=== PATIENT | female | born 1965 | race Caucasian/White ===

== ENCOUNTER 2024-01-31 06:08 | Emergency (ER) | payer SELFPAY ==
[2024-01-31 06:12] VITALS: BP 126/86; BMI 33.3
[2024-01-31 06:16] VITALS: BP 126/86
[2024-01-31 06:34] LABS: % Basophils 0.8 % (0-2); % Eosinophils 1.8 % (0-6); % Immature Granulocytes 0.3 % (0-0.5); % Lymphocytes 37.1 % (20.5-51.1); % Monocytes 8.4 % (1.7-9.3); % Neutrophils 51.6 % (42.2-75.2); Absolute Eosinophils 0.1 10^3/uL (0-0.7); Absolute Lymphocytes 1.4 10^3/uL (1.2-3.4); Absolute Monocytes 0.3 10^3/uL (0.1-0.6); Hemoglobin 12.5 g/dL (12.0-16.0); Mean Corp Hgb Conc. 34.7 g/dL (33.0-37.0); Mean Corpuscular Hgb 30.6 pg (27.0-31.0); Mean Corpuscular Volume 88.2 fL (81.0-99.0); Mean Platelet Volume 10.2 fL (7.4-10.4); Nucleated Red Blood Cells % 0 %; Platelet Count 222 10^3/uL (130-400); Red Blood Cell Count 4.08 10^6/uL (4.20-5.40); Red Cell Dist. Width 12.7 % (11.5-14.5); White Blood Cell Count 3.8 10^3/uL (4.8-10.8)
[2024-01-31 06:49] LABS: ALT (SGPT) 19 U/L (0-35); AST (SGOT) 25 U/L (14-36); Albumin 4.1 g/dl (3.5-5.0); Alkaline Phosphatase 66 U/L (38-126); Blood Urea Nitrogen 25 mg/dl (7-17); Calcium 9.3 mg/dl (8.4-10.2); Carbon Dioxide 22 mmol/L (22-30); Chloride 103 mmol/L (98-107); Estimated Creatinine Clearance 117 ml/min; Glucose 128 mg/dl (70-99); Potassium 3.8 mmol/L (3.5-5.1); Sodium 136 mmol/L (135-145); Total Bilirubin 0.6 mg/dl (0.2-1.3); Total Protein 6.9 g/dl (6.3-8.2); eGFR > 60.00
[2024-01-31 07:00] VITALS: BP 124/78
[2024-01-31 07:00] LABS: Troponin I < 0.012 ng/ml
--- NOTE | 2024-01-31 07:27 | ED.GENMED ---
History of Present Illness
General
Chief Complaint: Fainting/Passed Out
Time Seen by Provider: 01/31/24 07:09
Travel History
Have you had any contact with someone who has COVID-19?: No
Do you have any symptoms of coronavirus? Fever > 100 degrees, chills, cough, shortness of breath, sore throat, loss of taste or smell, muscle aches, or headache?: No
History of Present Illness
History of Present Illness:
58-year-old female presents to emergency department for evaluation after a witnessed syncopal event at work. 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
was witnessed to 'slumped down the wall'. Did not eat or drink before going to work this morning. Currently reports fatigue and lightheadedness as well as headache. She also reports pain to the right fifth toe, uncertain how this may have
occurred. No chest pain or dyspnea. She is on antihypertensives and did take them this morning. No recent fevers or chills.
Past History
Past History
ED Past Medical History: None
ED Past Surgical History: None
Patient has exhibited threatening behavior?: No
Social History
Personal:
Living: with family
Review of Systems
Review of Systems
Allergies reviewed?: Yes
All Other Systems: ROS reviewed and negative except as documented in HPI and ROS
Phy Exam
Physical Exam
Physical Exam:
GEN: Well appearing, NAD, WDWN
HEENT: Oral mucosa moist, no scleral icterus, no nasal congestion
Cardiac: Regular rate and rhythm, no murmurs
Lung: No respiratory distress, no tachypnea
MSK: No gross deformity or injuries
Skin: Good color, no pallor or jaundice, no rashes
Neuro: AO x3; CN II-XII grossly intact. BUE strength 5/5 in all frost, sensation intact and symmetric. BLE strength 5/5 in all frost, sensation intact and symmetric
Psych: Calm, cooperative
Course
Orders/Labs/Results
Orders:
Orders
01/31/24 06:11
Electrocardiogram (*1) Urgent
Reason for Study: Chest Pain
Cardiac Monitoring- Treatment ONCE
EKG- Treatment ONCE
IV Insert/Care/Rem.- Treatment PRN
O2 Therapy [RESP] Urgent
Titrate/Wean O2 to maintain O2 sat greater than (%): 90
Special Instructions: Maintain sats >/=90%
Pulse Ox/spot Check [RESP] Urgent
Quantity: 1
Special Instructions: ON ROOM AIR
01/31/24 06:18
Complete Blood Count/With Diff Urgent
Comprehensive Metabolic Panel Urgent
Troponin I Urgent
01/31/24 07:27
CR Toe(s) Min 2 Vw Right Urgent
Comment:
Reason For Exam: R 5th toe pain after fall
Abnormal Lab Results
01/31/24
06:18
WBC 3.8 L 10^3/uL
(4.8-10.8)
RBC 4.08 L 10^6/uL
(4.20-5.40)
Hct 36.0 L %
(37.0-47.0)
BUN 25 H mg/dl
(7-17)
Glucose 128 H mg/dl
(70-99)
01/31/24 06:18
01/31/24 06:18
Vital Signs
Initial and Last Documented VS:
Initial Vital Signs
Temp Pulse Resp BP Pulse Ox
98 F 92 20 126/86 99
01/31/24 06:12 01/31/24 06:12 01/31/24 06:12 01/31/24 06:12 01/31/24 06:12
Last Documented Vital Signs
Temp Pulse Resp BP Pulse Ox
98 F 68 11 124/78 98
01/31/24 06:12 01/31/24 07:30 01/31/24 07:30 01/31/24 07:00 01/31/24 07:30
MDM/Problems Addressed
MDM/Problems Addressed:
Patient's syncopal event was likely vasovagal in the basis of p.o. food or fluids this morning, with prolonged sitting. Incidentally she is noted to have a right proximal fifth phalanx fracture likely sustained during her syncopal event. She is
able to ambulate. Postoperative shoe provided and supportive care discussed. Labs are reassuring,, recommend rest for the duration of the day with primary care follow-up as well as orthopedic follow-up regarding the toe fracture
*Critical Care Note
Total Time (30-74mins, 75-104mins- exclusive of procedures): Not Applicable
ED Attending Note
-
Portions of this chart may have been created with voice recognition software.� Occasional wrong word or��sound alike� substitutions may have occurred due to the inherent limitations of voice recognition software.
Discharge Plan
Departure
Patient Disposition: Home (Routine Discharge)
Date of Disposition: 01/31/24
Time of Disposition: 07:49
Patient with high blood pressure during this ER visit?: No
Discharge Problem:
Vasovagal syncope, Fracture of proximal phalanx of toe of right foot
Instructions: Vasovagal Response (DC), Toe Fracture ED
Prescriptions:
No Action
omeprazole 40 MG capsule,delayed release(DR/EC)
40 mg PO DAILY
ibuprofen 200 MG tablet
200 mg PO PRN PRN (Reason: pain)
naproxen 500 MG tablet
500 mg PO BID PRN (Reason: pain)
amlodipine-valsartan 1 EACH tablet
1 ea PO DAILY
multivitamin with folic acid [Tab-A-Elissa] 1 TABLET tablet
1 tab PO DAILY
docusate sodium 100 MG capsule
100 mg PO BIDPRN PRN (Reason: Constipation) 0RF
oxycodone 5 MG tablet
5 mg PO Q4HPRN PRN (Reason: moderate pain) Qty: 20 0RF
Referrals:
Yang Cobos DPM [Active] -
Interventions
Interventions:
*Risk Screen - Suicide Last Done: 01/31/24 06:12
*General Assessment Last Done: 01/31/24 06:12
*Neglect/Abuse Screening Last Done: 01/31/24 06:12
ED- Fall Risk Assessment Last Done: 01/31/24 08:12
*ED COVID-19 Vaccine History Last Done: 01/31/24 06:12
*Nursing Disposition Last Done: 01/31/24 08:12
ED- Cardiac Assessment Last Done: 01/31/24 06:21
ED- Neurological Assessment Last Done: 01/31/24 06:21
Discharge Date and Time
Discharge Date/Time: 01/31/24 08:15
Print Language: TELUGU
== END 2024-01-31 08:15 | disposition home or self-care (01) ==
LOC: EMR 06:08
PROVIDERS: EMERGENCY PHYSICIAN Emergency Medicine
DX: R55 Syncope and collapse (principal); S92.531A Displaced fracture of distal phalanx of right lesser toe(s), initial encounter for closed fracture; X58.XXXA Exposure to other specified factors, initial encounter
CPT/HCPCS: 99285; 73660; 80053; 84484; 85025; 93005

== ENCOUNTER 2024-08-14 06:45 | Day surgery (SDC) | payer OTHER, SELFPAY | END 2024-08-14 15:17 | disposition home or self-care (01) | LOC: GI 06:45 | PROVIDERS: ATTENDING PHYSICIAN Internal Medicine Gastroenterology | DX: Z12.11 Encounter for screening for malignant neoplasm of colon (principal); D12.3 Benign neoplasm of transverse colon; K62.1 Rectal polyp; K22.89 Other specified disease of esophagus; K21.9 Gastro-esophageal reflux disease without esophagitis; K44.9 Diaphragmatic hernia without obstruction or gangrene; K31.89 Other diseases of stomach and duodenum | CPT/HCPCS: 45385; 45380; 43239; 88305; 88342 ==

== ENCOUNTER → 2025-05-30 14:50 | Outpatient (REF) | payer OTHER, SELFPAY | LOC: RAD 14:50 | PROVIDERS: ATTENDING PHYSICIAN Nurse Practitioner Primary Care | DX: E03.8 Other specified hypothyroidism (principal) | CPT/HCPCS: 76536 ==

== ENCOUNTER 2025-06-11 06:49 | Outpatient (RCR) | payer OTHER, SELFPAY | END 2025-06-11 23:59 | disposition home or self-care (01) | LOC: RPT 06:49 | PROVIDERS: ATTENDING PHYSICIAN Nurse Practitioner Primary Care | DX: R42 Dizziness and giddiness (principal); Z73.6 Limitation of activities due to disability | CPT/HCPCS: 97112; 97162 ==

== ENCOUNTER 2025-06-20 09:52 | Outpatient (RCR) | payer OTHER, SELFPAY | END 2025-06-20 23:59 | disposition home or self-care (01) | LOC: RPT 09:52 | PROVIDERS: ATTENDING PHYSICIAN Nurse Practitioner Primary Care | DX: R42 Dizziness and giddiness (principal); Z73.6 Limitation of activities due to disability | CPT/HCPCS: 97112 ==

== ENCOUNTER → 2025-08-10 | Outpatient (REF) | payer OTHER, SELFPAY | LOC: DHSLP | PROVIDERS: ATTENDING PHYSICIAN Nurse Practitioner Primary Care | DX: G47.33 Obstructive sleep apnea (adult) (pediatric) (principal) | CPT/HCPCS: 95800 ==